=== PATIENT | male | born 1980 | race Caucasian/White ===

== ENCOUNTER → 2020-02-19 15:49 | Outpatient (CLI) | payer OTHER, SELFPAY ==
--- NOTE | 2020-02-19 15:50 | RAD_ITS ---
STUDY: X-RAY - RIGHT KNEE REASON FOR EXAM: Male, 40 years old. RIGHT KNEE PAIN, NKI TECHNIQUE: 4 view(s) of the knee. COMPARISON: None. FINDINGS: Normal visualized distal femur. Normal visualized proximal tibia and fibula. Normal proximal tibiofibular articulation. Normal medial femorotibial compartment. Normal lateral femorotibial compartment. Normal patellofemoral articulation. There is a soft tissue prominence in the suprapatellar region suggesting a small volume joint effusion. The soft tissue structures are unremarkable. RAD/Knee 4 or More Views IMPRESSION: No demonstrated fracture or suspicious osseous lesion Small joint effusion Electronically Signed: Celestino Bruce MD at 16:09 EDT , Service support ,
== END ==
PROVIDERS: Referring Provider Physician Assistant Surgical; Visit Provider Physician Assistant Surgical
DX: S86.911A Strain of unspecified muscle(s) and tendon(s) at lower leg level, right leg, initial encounter (principal)
CPT/HCPCS: 73564